=== PATIENT | female | born 1945 | race Caucasian/White ===

== ENCOUNTER 2019-12-30 07:45 | Outpatient (REF) | payer MEDICARE, OTHER, SELFPAY ==
[2019-12-30 11:57] LABS: Free T4 (Free Thyroxine) 1.33 ng/dL (0.71-1.85); Thyroid Stimulating Hormone 2.31 mIU/mL (0.32-4.0)
[2020-01-01 18:32] LABS: Thyroid Peroxidase Antibodies 129 IU/mL (<9)
== END 2019-12-30 07:46 | disposition home or self-care (01) ==
LOC: HO.10HDL 07:45
PROVIDERS: Visit Provider Internal Medicine Endocrinology, Diabetes & Metabolism
DX: E03.9 Hypothyroidism, unspecified (principal)
CPT/HCPCS: 36415; 84439; 84443; 86376

== ENCOUNTER 2020-02-03 08:04 | Outpatient (REF) | payer MEDICARE, OTHER, SELFPAY ==
[2020-02-03 11:13] LABS: Free T4 (Free Thyroxine) 1.26 ng/dL (0.71-1.85); Thyroid Stimulating Hormone 2.93 uIU/mL (0.32-4.0)
[2020-02-04 21:42] LABS: Thyroid Peroxidase Antibodies 121 IU/mL (<9)
== END 2020-02-03 08:05 | disposition home or self-care (01) ==
LOC: HO.10HDL 08:04
PROVIDERS: Visit Provider Internal Medicine Endocrinology, Diabetes & Metabolism
DX: Z13.89 Encounter for screening for other disorder (principal)
CPT/HCPCS: 36415; 84439; 84443; 86376

== ENCOUNTER 2020-02-20 12:21 | Outpatient (REF) | payer MEDICARE, OTHER, SELFPAY | END 2020-02-20 12:22 | disposition home or self-care (01) | LOC: HO.WFDLDS 12:21 | PROVIDERS: Visit Provider Internal Medicine | DX: Z20.828 Contact with and (suspected) exposure to other viral communicable diseases (principal) | CPT/HCPCS: C9803; U0003 ==

== ENCOUNTER 2020-03-02 07:44 | Outpatient (REF) | payer MEDICARE, OTHER, SELFPAY ==
[2020-03-02 10:52] LABS: Free T4 (Free Thyroxine) 1.21 ng/dL (0.71-1.85); Thyroid Stimulating Hormone 4.33 uIU/mL (0.32-4.0)
== END 2020-03-02 07:45 | disposition home or self-care (01) ==
LOC: HO.10HDLR 07:44
PROVIDERS: PCP Internal Medicine; Visit Provider Internal Medicine Endocrinology, Diabetes & Metabolism
DX: E03.9 Hypothyroidism, unspecified (principal)
CPT/HCPCS: 84439; 84443

== ENCOUNTER 2020-04-15 09:18 | Outpatient (REF) | payer MEDICARE, OTHER, SELFPAY ==
--- NOTE | 2020-04-15 09:23 | MM_ITS ---
EXAMINATION: MM SCREENING DIGITAL BREAST TOMOSYNTHESIS, BILATERAL CLINICAL INFORMATION: Screening. Asymptomatic. The lifetime risk of breast cancer based on the Tyrer-Cuzick Model is 3.3%. COMPARISON: Mammography: September 14, 2018 and studies dating back to August 16, 2012 TECHNIQUE: Digital breast tomosynthesis is performed in both the craniocaudal and mediolateral oblique views along with computer-aided detection (CAD). Synthesized 2D images are generated from the tomosynthesis. FINDINGS: There are scattered areas of fibroglandular density (ACR BI-RADS breast composition Category b). There are no significant masses, abnormal calcifications, or other abnormalities. MM/MM tomosynthesis screening BI IMPRESSION: There are no significant changes from prior study. ASSESSMENT: BI-RADS 1: Negative RECOMMENDATION: Routine annual mammography screening. This patient's information was entered into a reminder system with a target due date for their next mammogram.
== END 2020-04-15 09:19 | disposition home or self-care (01) ==
LOC: HO.MAMMO 09:18
PROVIDERS: Visit Provider Internal Medicine
DX: Z12.31 Encounter for screening mammogram for malignant neoplasm of breast (principal)
CPT/HCPCS: 77063; 77067

== ENCOUNTER 2020-11-14 08:00 | Outpatient (REF) | payer MEDICARE, OTHER, SELFPAY ==
[2020-11-14 09:42] LABS: Alanine Aminotransferase 88 U/L (0-31); Albumin Level 4.1 g/dL (3.5-5.0); Alkaline Phosphatase 86 U/L (39-117); Anion Gap 12 (12-20); Aspartate Amino Transferase 55 U/L (5-31); Bilirubin Total 0.7 mg/dL (0.0-1.0); Blood Urea Nitrogen 18 mg/dL (9-16); Calcium 9.4 mg/dL (8.4-10.2); Carbon Dioxide 28 mmol/L (22-29); Chloride 105 mmol/L (96-108); Cholesterol 177 mg/dL; Estimated Glomerular Filt Rate > 60; Glucose Random 107 mg/dL (60-115); HDL Cholesterol 61 mg/dL; LDL Cholesterol Calculated 106 mg/dl; Potassium 4.7 mmol/L (3.3-5.1); Sodium 140 mmol/L (135-145); Total Protein 6.7 g/dL (6.5-8.0); Triglycerides 53 mg/dL
[2020-11-17 13:35] LABS: Estimated Average Glucose 120 mg/dL; Hemoglobin A1c % 5.8 %
== END 2020-11-14 08:01 | disposition home or self-care (01) ==
LOC: HO.LAB 08:00
PROVIDERS: PCP Internal Medicine; Visit Provider Physician Assistant
DX: R73.01 Impaired fasting glucose (principal); E78.00 Pure hypercholesterolemia, unspecified
CPT/HCPCS: 36415; 80053; 80061; 83036

== ENCOUNTER 2021-03-08 07:11 | Outpatient (REF) | payer MEDICARE, OTHER, SELFPAY ==
[2021-03-08 08:25] LABS: Free T4 (Free Thyroxine) 1.05 ng/dL (0.71-1.85); Thyroid Stimulating Hormone 9.45 uIU/mL (0.32-4.0)
== END 2021-03-08 07:12 | disposition home or self-care (01) ==
LOC: HO.LAB 07:11
PROVIDERS: PCP Internal Medicine; Visit Provider Internal Medicine Endocrinology, Diabetes & Metabolism
DX: E03.9 Hypothyroidism, unspecified (principal)
CPT/HCPCS: 36415; 84439; 84443

== ENCOUNTER 2021-04-28 13:48 | Outpatient (REF) | payer MEDICARE, OTHER, SELFPAY ==
--- NOTE | ~2021-04-28 | MM_ITS ---
EXAMINATION: MM SCREENING DIGITAL BREAST TOMOSYNTHESIS, BILATERAL CLINICAL INFORMATION: Screening. Asymptomatic. The lifetime risk of breast cancer based on the Tyrer-Cuzick Model is 4%. COMPARISON: Mammography: 04/15/2020, 09/14/2018, 05/09/2017, 03/16/2016 TECHNIQUE: Digital breast tomosynthesis is performed in both the craniocaudal and mediolateral oblique views along with computer-aided detection (CAD). Synthesized 2D images are generated from the tomosynthesis. FINDINGS: There are scattered areas of fibroglandular density (ACR BI-RADS breast composition Category b). Parenchymal pattern is similar to prior studies. Left breast has stable parenchymal asymmetry anterior upper outer periareolar region. Right breast has a stable nodule mid upper outer quadrant measuring approximately 5 x 7 mm. There is no interval mass or architectural abnormality or abnormal calcifications. The axilla and skin contours are unremarkable. No significant changes. MM/MM tomosynthesis screening BI IMPRESSION: No mammographic evidence of malignancy. ASSESSMENT: BI-RADS 2: Benign RECOMMENDATION: Routine annual mammography screening. This patient's information was entered into a reminder system with a target due date for their next mammogram.
== END 2021-04-28 13:49 | disposition home or self-care (01) ==
LOC: HO.MAMMO 13:48
PROVIDERS: PCP Internal Medicine; Visit Provider Internal Medicine
DX: Z12.31 Encounter for screening mammogram for malignant neoplasm of breast (principal)
CPT/HCPCS: 77063; 77067

== ENCOUNTER 2021-05-05 10:45 | Outpatient (REF) | payer MEDICARE, OTHER, SELFPAY ==
[2021-05-05 13:26] LABS: MANUAL DIFF FLAG NO
[2021-05-05 13:32] LABS: Basophils Absolute Auto 0.1 X10*3/uL (0.0-0.2); Basophils Percent Auto 1.2 % (0-2); Eosinophils Absolute Auto 0.1 X10*3/uL (0.0-0.4); Eosinophils Percent Auto 2.4 % (0-4); Hematocrit 42.8 % (37.0-47.0); Hemoglobin 13.9 g/dl (12.0-16.0); Imm Gran Abs Auto 0.02 X10*3/uL (0.00-0.03); Imm Gran Pct Auto 0.4 % (0.0-0.4); Lymphocytes Absolute Auto 1.1 X10*3/uL (1.2-4.9); Lymphocytes Percent Auto 22.6 % (20-40); Mean Corpuscular HGB Conc 32.5 g/dl (31.0-35.0); Mean Corpuscular Hemoglobin 31.7 pg (27.0-33.0); Mean Corpuscular Volume 97.7 fL (80.0-98.0); Mean Platelet Volume 9.6 fL (9.4-12.3); Monocytes Absolute Auto 0.3 X10*3/uL (0.1-1.2); Monocytes Percent Auto 5.3 % (2-11); Neutrophils Absolute Auto 3.4 x10*3/uL (2.0-8.3); Neutrophils Percent Auto 68.1 % (45-73); Platelet Count 284 X10*3/uL (160-400); Red Blood Count 4.38 X10*6/uL (4.20-5.50); Red Cell Distribution Width 12.5 % (11.0-16.0); White Blood Count 4.9 X10*3/uL (4.8-10.8)
[2021-05-05 13:43] LABS: Alanine Aminotransferase 27 U/L (0-31); Albumin Level 4.2 g/dL (3.5-5.0); Alkaline Phosphatase 95 U/L (39-117); Anion Gap 13 (12-20); Aspartate Amino Transferase 27 U/L (5-31); Bilirubin Total 0.7 mg/dL (0.0-1.0); Blood Urea Nitrogen 15 mg/dL (9-16); Calcium 9.5 mg/dL (8.4-10.2); Carbon Dioxide 29 mmol/L (22-29); Chloride 102 mmol/L (96-108); Estimated Glomerular Filt Rate > 60; Glucose Random 114 mg/dL (60-115); Potassium 4.5 mmol/L (3.3-5.1); Sodium 139 mmol/L (135-145); Total Protein 6.8 g/dL (6.5-8.0)
[2021-05-05 13:44] LABS: Estimated Average Glucose 123 mg/dL; Hemoglobin A1C 148.3527 umol/L; Hemoglobin A1c % 5.9 %
[2021-05-05 14:04] LABS: Syphilis Screen Nonreactive (Nonreactive)
[2021-05-05 14:06] LABS: Free T4 (Free Thyroxine) 1.36 ng/dL (0.71-1.85); Thyroid Stimulating Hormone 1.63 uIU/mL (0.32-4.0)
[2021-05-05 14:09] LABS: Appearance Urine HAZY; Color Urine STRAW; Glucose Urine UA NEG (NEG); Leukocyte Esterase Urine NEG (NEG); Nitrite Urine NEG (NEG); Specific Gravity - Urine <= 1.005 (1.005-1.025); Urine Blood NEG (NEG); Urine Ketones NEG (NEG); Urine Protein NEG (NEG-TRACE)
[2021-05-05 14:12] LABS: Erythrocyte Sedimentation Rate 7 MM/HR (0-20)
[2021-05-05 14:16] LABS: Folate 6.1 ng/mL (> or = 4.0); Vitamin B12 305 pg/mL (200-900)
== END 2021-05-05 10:46 | disposition home or self-care (01) ==
LOC: HO.MANLDS 10:45
PROVIDERS: PCP Physician Assistant; Visit Provider Physician Assistant
DX: R41.3 Other amnesia (principal)
CPT/HCPCS: 36415; 80053; 81003; 82607; 82746; 83036; 84439; 84443; 85025; 85652; 86140; 86780

== ENCOUNTER 2021-05-12 13:19 | Outpatient (REF) | payer MEDICARE, OTHER, SELFPAY ==
--- NOTE | ~2021-05-12 | CT_ITS ---
EXAMINATION: CT HEAD WITHOUT CONTRAST CLINICAL INFORMATION: Amnesia, atrophy, CVA. COMPARISON: None TECHNIQUE: Contiguous axial imaging was performed from the skull base to vertex without intravenous administration of contrast. This CT examination was performed using dose optimization techniques as appropriate, variously including the following: Automated exposure control. Adjustment of mA and/or kV according to patient size (this includes techniques or standardized protocols for targeted exams where dose is matched to indication/reason for exam; i.e. extremities or head). Use of iterative reconstruction technique. DLP: 784 mGy-cm FINDINGS: There is no evidence of acute intracranial hemorrhage or territorial infarction. No abnormal mass effect or midline shift is seen. Braden to white matter differentiation is well preserved. No extra-axial fluid collections are identified. The lateral ventricles are symmetrical in size and configuration without enlargement. There is no abnormal attenuation within the brain parenchyma. There is benign hyperostosis frontalis interna. The osseous structures and soft tissues are normal. The mastoid air cells and visualized portions of the paranasal sinuses are well aerated. CT/CT head/brain wo con IMPRESSION: No acute intracranial process seen.
== END 2021-05-12 13:20 | disposition home or self-care (01) ==
LOC: HO.CT 13:19
PROVIDERS: Visit Provider Physician Assistant
DX: R41.3 Other amnesia (principal)
CPT/HCPCS: 70450

== ENCOUNTER 2022-05-04 13:31 | Outpatient (REF) | payer MEDICARE, OTHER, SELFPAY ==
--- NOTE | ~2022-05-04 | MM_ITS ---
EXAMINATION: MM SCREENING DIGITAL BREAST TOMOSYNTHESIS, BILATERAL CLINICAL INFORMATION: Screening. Asymptomatic. The lifetime risk of breast cancer based on the Tyrer-Cuzick Model is 4%. COMPARISON: Mammography: 04/28/2021, 04/15/2020, 09/14/2018 TECHNIQUE: Digital breast tomosynthesis is performed in both the craniocaudal and mediolateral oblique views along with computer-aided detection (CAD). Synthesized 2D images are generated from the tomosynthesis. FINDINGS: There are scattered areas of fibroglandular density (ACR BI-RADS breast composition Category b). There are no significant masses, abnormal calcifications, or other abnormalities. Parenchymal pattern is similar to prior studies. There is no developing density or architectural abnormality. Again, there is a stable nodule mid upper outer right breast similar to prior studies. The axilla and skin contours are unremarkable. No significant changes. MM/MM tomosynthesis screening BI IMPRESSION: No significant changes from prior studies. ASSESSMENT: BI-RADS 2: Benign RECOMMENDATION: Routine annual mammography screening. This patient's information was entered into a reminder system with a target due date for their next mammogram.
== END 2022-05-04 13:32 | disposition home or self-care (01) ==
LOC: HO.MAMMO 13:31
PROVIDERS: PCP Internal Medicine; Visit Provider Internal Medicine
DX: Z12.31 Encounter for screening mammogram for malignant neoplasm of breast (principal)
CPT/HCPCS: 77063; 77067

== ENCOUNTER 2022-09-05 12:26 | Outpatient (REF) | payer MEDICARE, OTHER, SELFPAY ==
[2022-09-05 14:48] LABS: Free T4 (Free Thyroxine) 0.91 ng/dL (0.71-1.85); Thyroid Stimulating Hormone 7.95 uIU/mL (0.32-4.0)
== END 2022-09-05 12:27 | disposition home or self-care (01) ==
LOC: HO.10HDL 12:26
PROVIDERS: Visit Provider Physician Assistant
DX: E03.8 Other specified hypothyroidism (principal)
CPT/HCPCS: 36415; 84439; 84443

== ENCOUNTER 2022-11-04 11:22 | Outpatient (REF) | payer MEDICARE, OTHER, SELFPAY ==
[2022-11-04 16:59] LABS: Free T4 (Free Thyroxine) 0.96 ng/dL (0.71-1.85); Thyroid Stimulating Hormone 6.71 uIU/mL (0.32-4.0)
== END 2022-11-04 11:23 | disposition home or self-care (01) ==
LOC: HO.10HDL 11:22
PROVIDERS: Visit Provider Physician Assistant
DX: E03.8 Other specified hypothyroidism (principal)
CPT/HCPCS: 36415; 84439; 84443

== ENCOUNTER 2022-11-18 11:03 | Outpatient (REF) | payer MEDICARE, OTHER, SELFPAY ==
[2022-11-18 14:11] LABS: Free T4 (Free Thyroxine) 1.07 ng/dL (0.71-1.85); Thyroid Stimulating Hormone 12.24 uIU/mL (0.32-4.0)
== END 2022-11-18 11:04 | disposition home or self-care (01) ==
LOC: HO.10HDL 11:03
PROVIDERS: Visit Provider Physician Assistant
DX: E03.8 Other specified hypothyroidism (principal)
CPT/HCPCS: 36415; 84439; 84443

== ENCOUNTER 2022-12-14 11:22 | Outpatient (REF) | payer MEDICARE, OTHER, SELFPAY ==
[2022-12-14 14:36] LABS: Free T4 (Free Thyroxine) 1.13 ng/dL (0.71-1.85); Thyroid Stimulating Hormone 3.11 uIU/mL (0.32-4.0)
== END 2022-12-14 11:23 | disposition home or self-care (01) ==
LOC: HO.10HDL 11:22
PROVIDERS: Visit Provider Physician Assistant
DX: E03.8 Other specified hypothyroidism (principal)
CPT/HCPCS: 36415; 84439; 84443

== ENCOUNTER 2023-09-26 09:47 | Outpatient (REF) | payer MEDICARE, OTHER, SELFPAY ==
[2023-09-26 13:01] LABS: MANUAL DIFF FLAG NO
[2023-09-26 13:09] LABS: Basophils Absolute Auto 0.1 X10*3/uL (0.0-0.2); Basophils Percent Auto 0.8 % (0-2); Eosinophils Absolute Auto 0.1 X10*3/uL (0.0-0.4); Eosinophils Percent Auto 2.2 % (0-4); Hematocrit 45.3 % (37.0-47.0); Hemoglobin 14.8 g/dl (12.0-16.0); Imm Gran Abs Auto 0.02 X10*3/uL (0.00-0.03); Imm Gran Pct Auto 0.3 % (0.0-0.4); Lymphocytes Absolute Auto 1.7 X10*3/uL (1.2-4.9); Lymphocytes Percent Auto 26.2 % (20-40); Mean Corpuscular HGB Conc 32.7 g/dl (31.0-35.0); Mean Corpuscular Hemoglobin 31.6 pg (27.0-33.0); Mean Corpuscular Volume 96.8 fL (80.0-98.0); Mean Platelet Volume 9.7 fL (9.4-12.3); Monocytes Absolute Auto 0.5 X10*3/uL (0.1-1.2); Neutrophils Percent Auto 62.5 % (45-73); Platelet Count 252 X10*3/uL (160-400); Red Blood Count 4.68 X10*6/uL (4.20-5.50); Red Cell Distribution Width 13.1 % (11.0-16.0); White Blood Count 6.4 X10*3/uL (4.8-10.8)
[2023-09-26 13:43] LABS: Alanine Aminotransferase 24 U/L (0-31); Alkaline Phosphatase 85 U/L (39-117); Anion Gap 15 (12-20); Aspartate Amino Transferase 22 U/L (5-31); Bilirubin Total 0.8 mg/dL (0.0-1.0); Blood Urea Nitrogen 23 mg/dL (9-16); Carbon Dioxide 27 mmol/L (22-29); Chloride 104 mmol/L (96-108); Estimated Glomerular Filt Rate > 60; Glucose Random 97 mg/dL (60-115); Potassium 4.5 mmol/L (3.3-5.1); Sodium 141 mmol/L (135-145)
[2023-09-26 13:44] LABS: Free T4 (Free Thyroxine) 1.92 ng/dL (0.71-1.85); Thyroid Stimulating Hormone 0.06 uIU/mL (0.32-4.0); Vitamin D 25-OH Total 30.2 ng/mL (>30)
[2023-09-26 13:53] LABS: Folate 4.8 ng/mL (> or = 4.0); Vitamin B12 324 pg/mL (200-900)
[2023-09-27 15:54] LABS: Triiodothyronine T3 Free 3.7 pg/mL (2.3-4.2)
[2023-10-02 18:05] LABS: Thyroid Stimulating Immunoglob <89 % baseline (<140)
== END 2023-09-26 09:48 | disposition home or self-care (01) ==
LOC: HO.MANLDS 09:47
PROVIDERS: Visit Provider Physician Assistant
DX: E03.8 Other specified hypothyroidism (principal); F02.A18 Dementia in other diseases classified elsewhere, mild, with other behavioral disturbance
CPT/HCPCS: 36415; 80053; 82306; 82607; 82746; 84439; 84443; 84445; 84481; 85025

== ENCOUNTER 2023-11-04 12:35 | Emergency (ER) | payer MEDICARE, OTHER, SELFPAY ==
--- NOTE | ~2023-11-04 | US_ITS ---
EXAMINATION: US ABDOMEN LIMITED CLINICAL INFORMATION: Pancytopenia. COMPARISON: CT from 01/26/2018 TECHNIQUE: Real-time imaging of the left upper quadrant abdominal viscera. FINDINGS: SPLEEN: Normal. The spleen is normal in size measuring a long length of 8.7 cm. Parenchymal echogenicity is normal. LEFT KIDNEY: Normal. No hydronephrosis. No renal calculi or focal parenchymal lesions. The kidney measures 9.7 cm in maximum dimension. FREE FLUID: None. US/US abdomen limited IMPRESSION: Normal ultrasound of the spleen and left kidney. Electronically signed by: Aman Hill MD 11/05/2023 09:46 PM EDT
[2023-11-04 12:47] VITALS: BP 123/53; PULSE 81; RESP 16; O2SAT 96; BMI 21.0
[2023-11-04 12:50] VITALS: BP 123/53; PULSE 81; RESP 14; O2SAT 96
--- NOTE | 2023-11-04 12:55 | PC.NURSE ---
Pt comes to ED today from home, lives with family. Report from EMS, that Pt is confused at baseline--oriented to person only, and has been presenting with increased anger. Family requesting placement for higher level of care. Pt denies pain and frequently asks to leave.
--- NOTE | 2023-11-04 13:00 | ED.GENADULT ---
HPI - General Adult General Chief complaint: General Medical Stated complaint: ANGRY W/FAMILY,ALZHEIMERS,FAM WANTS HIGHER CARE Time Seen by Provider: 11/04/23 12:46 Source: patient and EMS Mode of arrival: EMS Limitations: other (poor historian - dementia) History of Present Illness ED Provider: NADEEM HPI narrative: 78 yo female with PMH of dementia and HTN here with c/o dementia dx about 2 years ago and then abrupt change about a week ago aggressive agitated not eating or drinking. Family here sons one of whom she lives with and they state they cannot care for her and she needs to be evaluated. They state we are not taking her home. Patient is on BP medications and seroquel. current med list atorvastatin 40mg daily levothyroxine 200mcg daily lisinopril 10mg daily donepezil 10mg daily memantine 14mg daily currently on bactrim for the past week for presumed UTI though never seen and no urine done per son complaint: agitation Onset (ago): week(s) (1) Radiation: non-radiation Severity: moderate Relieving factors: none Exacerbating factors: none Associated symptoms: other (aggression, agitation, poor PO intake) Treatments prior to arrival: none Related Data Allergies Allergy/AdvReac Type Severity Reaction Status Date / Time No Known Allergies Allergy Unverified 11/04/23 12:48 [No Known Allergies*] Review of Systems Review of Systems: ROS unable to be obtained due to dementia Physical Exam ED Vital Signs: Vital Signs - 24 hr 11/04/23 12:47 11/04/23 12:50 11/04/23 14:00 Temperature 98.3 F Pulse Rate 81 81 67 Respiratory Rate 16 14 14 Blood Pressure 123/53 L 123/53 L 109/61 Pulse Oximetry 96 96 100 Oxygen Delivery Method Room Air Room Air Room Air BMI result Body Mass Index 21.0 Appearance: Alert. Oriented to self and place No acute distress. Eyes: Pupils equal, round and reactive to light. ENT: Pharynx normal. Neck: Normal inspection. Neck supple. CVS: Normal heart rate and rhythm. Pulses normal. Respiratory: No respiratory distress. Breath sounds normal. Abdomen: Soft and non-tender. Skin: Skin warm and dry. Normal skin color. Normal skin turgor. Extremities: No lower extremity edema. No calf ttp Neuro: Oriented X 2. No motor deficit. No sensory deficit. steady gait, CN2-12 intact Course Course Course Narrative: Kylah Call HCP [phone] Medications Administered Discontinued Medications Generic Name Dose Route Start Last Admin Trade Name Enrique PRN Reason Stop Dose Admin Quetiapine Fumarate 25 mg 11/04/23 13:00 11/04/23 13:04 Quetiapine Fumarate 25 Mg Tablet PO 11/04/23 13:01 25 mg ONCE ONE Administration Medical Decision Making Medical Decision Making [facility] Narrative: 78 yo female with PMH of dementia and HTN here with c/o worsening aggression and agitation at this time will obtain labs, UA and refer to CARE team. I did order seroquel on arrival given her anxiety and agitation Differential Diagnosis Differential Diagnoses: The differential diagnosis associated with the presentation includes dementia , UTI Admission/Observation Consideration of admission/observation: Escalation of care including admission/observation considered Consult Healthcare Provider Management of the patient was discussed with: Behavioral Health Provider Lab Data [facility] Lab Attestation statement: I reviewed the patient's lab results. 11/04/23 13:17 11/04/23 13:17 Labs: Lab Results 11/04/23 Range/Units 13:17 WBC 4.4 L (4.8-10.8) X10*3/uL RBC 3.61 L D (4.20-5.50) X10*6/uL Hgb 11.5 L D (12.0-16.0) g/dl Hct 33.8 L D (37.0-47.0) % MCV 93.6 (80.0-98.0) fL MCH 31.9 (27.0-33.0) pg MCHC 34.0 (31.0-35.0) g/dl RDW 12.5 (11.0-16.0) % Plt Count 184 D (160-400) X10*3/uL MPV 9.1 L (9.4-12.3) fL Immature Gran % (Auto) 0.2 (0.0-0.4) % Neut % (Auto) 72.7 (45-73) % Lymph % (Auto) 9.9 L (20-40) % [place] % (Auto) 11.5 H (2-11) % Eos % (Auto) 5.2 H (0-4) % Baso % (Auto) 0.5 (0-2) % Lymph # (Auto) 0.4 L (1.2-4.9) X10*3/uL [place] # (Auto) 0.5 (0.1-1.2) X10*3/uL Eos # (Auto) 0.2 (0.0-0.4) X10*3/uL Baso # (Auto) 0.0 (0.0-0.2) X10*3/uL Abs Immat Gran (auto) 0.01 (0.00-0.03) X10*3/uL Absolute Neuts (auto) 3.2 (2.0-8.3) x10*3/uL Absolute Nucleated RBC 0.000 (0.0-0.012) X10*3/uL Nucleated RBC % (auto) 0.0 (0.0-0.2) /100WBC Sodium 138 (135-145) mmol/L Potassium 3.8 (3.3-5.1) mmol/L Chloride 104 (96-108) mmol/L Carbon Dioxide 25 (22-29) mmol/L Anion Gap 13 (12-20) BUN 39 H (9-16) mg/dL Creatinine 1.05 (0.5-1.4) mg/dL Estim Creat Clear Calc 42.5 Estimated GFR 51 Random Glucose 113 (60-115) mg/dL Calcium 9.6 (8.4-10.2) mg/dL Magnesium 2.2 (1.6-2.6) mg/dL Total Bilirubin 0.5 (0.0-1.0) mg/dL Direct Bilirubin 0.2 (0.0-0.5) mg/dL AST 20 (5-31) U/L ALT 14 (0-31) U/L Alkaline Phosphatase 74 (39-117) U/L Total Protein 6.2 L (6.5-8.0) g/dL Albumin 3.7 (3.5-5.0) g/dL TSH < 0.01 L (0.32-4.0) uIU/mL Independent Historian Clinical information obtained from an independent historian. History obtained from or confirmed by: Other (son) External Record Review External record reviewed: Outpatient record Discharge Plan Discharge Clinical Impression: Dementia Qualifiers: Dementia type: unspecified type Dementia severity: unspecified severity Dementia behavioral or psychological symptom: without behavioral, psychotic, or mood disturbance or anxiety Qualified Code(s): F03.90 - Unspecified dementia, unspecified severity, without behavioral disturbance, psychotic disturbance, mood disturbance, and anxiety Patient Disposition: Still a Patient Print Language: Upper Sorbian
[2023-11-04] MEDS: QUEtiapine Fumarate 25 MG TABLET PO (13:04)
[2023-11-04 13:22] LABS: MANUAL DIFF FLAG NO
[2023-11-04 13:26] LABS: Basophils Percent Auto 0.5 % (0-2); Eosinophils Absolute Auto 0.2 X10*3/uL (0.0-0.4); Eosinophils Percent Auto 5.2 % (0-4); Hematocrit 33.8 % (37.0-47.0); Hemoglobin 11.5 g/dl (12.0-16.0); Imm Gran Abs Auto 0.01 X10*3/uL (0.00-0.03); Imm Gran Pct Auto 0.2 % (0.0-0.4); Lymphocytes Absolute Auto 0.4 X10*3/uL (1.2-4.9); Lymphocytes Percent Auto 9.9 % (20-40); Mean Corpuscular Hemoglobin 31.9 pg (27.0-33.0); Mean Corpuscular Volume 93.6 fL (80.0-98.0); Mean Platelet Volume 9.1 fL (9.4-12.3); Monocytes Absolute Auto 0.5 X10*3/uL (0.1-1.2); Monocytes Percent Auto 11.5 % (2-11); Neutrophils Absolute Auto 3.2 x10*3/uL (2.0-8.3); Neutrophils Percent Auto 72.7 % (45-73); Platelet Count 184 X10*3/uL (160-400); Red Blood Count 3.61 X10*6/uL (4.20-5.50); Red Cell Distribution Width 12.5 % (11.0-16.0); White Blood Count 4.4 X10*3/uL (4.8-10.8)
[2023-11-04 13:43] LABS: Alanine Aminotransferase 14 U/L (0-31); Albumin Level 3.7 g/dL (3.5-5.0); Alkaline Phosphatase 74 U/L (39-117); Anion Gap 13 (12-20); Aspartate Amino Transferase 20 U/L (5-31); Bilirubin Direct 0.2 mg/dL (0.0-0.5); Bilirubin Total 0.5 mg/dL (0.0-1.0); Blood Urea Nitrogen 39 mg/dL (9-16); Calcium 9.6 mg/dL (8.4-10.2); Carbon Dioxide 25 mmol/L (22-29); Chloride 104 mmol/L (96-108); Creatinine Clr Calc Pharmacy 42.5; Estimated Glomerular Filt Rate 51; Glucose Random 113 mg/dL (60-115); Magnesium 2.2 mg/dL (1.6-2.6); Potassium 3.8 mmol/L (3.3-5.1); Sodium 138 mmol/L (135-145); Total Protein 6.2 g/dL (6.5-8.0)
[2023-11-04 13:59] LABS: TSH reflex Free T4 < 0.01 uIU/mL (0.32-4.0)
[2023-11-04 14:00] VITALS: BP 109/61; PULSE 67; RESP 14; TEMP 36.8; O2SAT 100
[2023-11-04 15:01] LABS: Free T4 (Free Thyroxine) 1.92 ng/dL (0.71-1.85)
[2023-11-04 15:09] LABS: Influenza A PCR NEGATIVE (Negative); Influenza B PCR NEGATIVE (Negative); Resp Syncy Virus RNA Qual PCR NEGATIVE (Negative); SARS COV2 PCR INHOUSE NEGATIVE (Negative)
--- NOTE | 2023-11-04 16:39 | PC.NURSE ---
Pharmacy called for med rec
--- NOTE | 2023-11-04 17:02 | PHA.MEDREC ---
Pharmacy Consult ? Medication Reconciliation Pharmacy has completed the medication reconciliation. Spoke to Kylah (HCP) on the phone to go over and confirm meds.
[2023-11-04 17:18] LABS: Appearance Urine Turbid; Color Urine Yellow; Glucose Urine UA Negative (Negative); Leukocyte Esterase Urine Trace (Negative); Nitrite Urine Negative (Negative); Specific Gravity - Urine 1.025 (1.005-1.025); UMIC TRIGGER UACC YES; Urine Blood Negative (Negative); Urine Ketones 15 mg/dL (Negative); Urine Protein Trace mg/dL (Neg-Trace)
[2023-11-04 17:27] LABS: Bacteria Urine None Seen (None Seen); Hyaline Casts Urine 0-2 /LPF (0-2); Other Crystals Urine Present; RBC Urine 0-2 /HPF (0-2); Squamous Epithelial Cell Urine 0-2 /HPF (0-2); WBC Urine 0-5 /HPF (0-5)
[2023-11-04 17:38] VITALS: BP 120/52; PULSE 68; RESP 18; TEMP 36.7; O2SAT 99
[2023-11-04 18:00] VITALS: BP 138/60; PULSE 96; RESP 14; TEMP 36.9; O2SAT 96
--- NOTE | 2023-11-04 21:19 | PC.NURSE ---
Assumed care of ptTravis Castanon at bedside 1:1 for safety.
[2023-11-05 06:41] LABS: Basophils Percent Auto 0.3 % (0-2); Eosinophils Absolute Auto 0.3 X10*3/uL (0.0-0.4); Hematocrit 31.3 % (37.0-47.0); Hemoglobin 10.6 g/dl (12.0-16.0); Imm Gran Abs Auto 0.01 X10*3/uL (0.00-0.03); Imm Gran Pct Auto 0.3 % (0.0-0.4); Lymphocytes Absolute Auto 0.3 X10*3/uL (1.2-4.9); Lymphocytes Percent Auto 11.3 % (20-40); MANUAL DIFF FLAG NO; Mean Corpuscular HGB Conc 33.9 g/dl (31.0-35.0); Mean Corpuscular Hemoglobin 31.6 pg (27.0-33.0); Mean Corpuscular Volume 93.4 fL (80.0-98.0); Mean Platelet Volume 8.8 fL (9.4-12.3); Monocytes Absolute Auto 0.5 X10*3/uL (0.1-1.2); Neutrophils Absolute Auto 1.8 x10*3/uL (2.0-8.3); Neutrophils Percent Auto 59.1 % (45-73); Platelet Count 151 X10*3/uL (160-400); Red Blood Count 3.35 X10*6/uL (4.20-5.50); Red Cell Distribution Width 12.5 % (11.0-16.0)
[2023-11-05 07:41] LABS: OBS Int Ctl Valid YES; OBS1 NEGATIVE (NEGATIVE)
[2023-11-05 07:53] VITALS: BP 121/43; PULSE 58; RESP 18; TEMP 36.9; O2SAT 99
[2023-11-05 08:11] LABS: Anion Gap 11 (12-20); Blood Urea Nitrogen 22 mg/dL (9-16); Carbon Dioxide 23 mmol/L (22-29); Chloride 106 mmol/L (96-108); Creatinine Clr Calc Pharmacy 65.6; Estimated Glomerular Filt Rate > 60; Glucose Random 87 mg/dL (60-115); Potassium 4.1 mmol/L (3.3-5.1); Sodium 136 mmol/L (135-145)
[2023-11-05 08:23] LABS: Calcium 8.4 mg/dL (8.4-10.2)
--- NOTE | 2023-11-05 08:33 | PC.NURSE ---
pt has been calm, in hallway bed with sitter. e ating breakfast. able to follow commands for guiac stool and radiology
[2023-11-05 08:52] VITALS: BP 121/43
[2023-11-05] MEDS: Atorvastatin Calcium 40 MG TABLET PO (08:52)
[2023-11-05] MEDS: lisinopriL 10 MG TABLET PO (08:52)
[2023-11-05] MEDS: Donepezil HCl 10 MG TABLET PO (08:52)
[2023-11-05] MEDS: QUEtiapine Fumarate 25 MG TABLET PO ×2 (08:53→20:06)
--- NOTE | 2023-11-05 10:18 | PC.NURSE ---
update to family on phone. states patient has not been sleeping or eating. behaviors escaling. they are clear they cannot care for her at home. Spoke with Kylah and Jonathan Call. was recently on Abx with suspecting but not confirmed UTI. No urine sent. Will bring Memantine in to ED.
[2023-11-05 12:54] LABS: Hemoglobin 10.1 g/dl (12.0-16.0); Mean Corpuscular HGB Conc 33.7 g/dl (31.0-35.0); Mean Corpuscular Hemoglobin 31.5 pg (27.0-33.0); Mean Corpuscular Volume 93.5 fL (80.0-98.0); Mean Platelet Volume 9.4 fL (9.4-12.3); Platelet Count 143 X10*3/uL (160-400); Red Blood Count 3.21 X10*6/uL (4.20-5.50); Red Cell Distribution Width 12.6 % (11.0-16.0); White Blood Count 2.7 X10*3/uL (4.8-10.8)
[2023-11-05 12:59] LABS: Iron 28 mcg/dL (30-160); Percent Iron Saturation 16 % (15-50); Total Iron Binding Capacity 170 mcg/dL (228-428); Unsaturated Iron Binding 142 ug/dL
[2023-11-05 13:33] LABS: Folate 3.3 ng/mL (> or = 4.0)
[2023-11-05 13:48] LABS: Vitamin B12 332 pg/mL (200-900)
--- NOTE | 2023-11-05 14:14 | PC.NURSE ---
assumed care of pt at 1400, pt resting quietly in bed, CARE team speaking w pt, 1:1 at bedside.
[2023-11-05] MEDS: Ferrous Sulfate 324 MG TABLET.DR PO (14:55)
[2023-11-05] MEDS: Folic Acid 1 MG TABLET PO (14:55)
--- NOTE | 2023-11-05 15:59 | PC.NURSE ---
Pt observed resting comfortably on stretcher with eye closed. NAD
--- NOTE | 2023-11-05 21:14 | P.CNHO_ITS ---
Subjective - Subjective Chief complaint: pancytopenia Patient: new to practice Consult date: 11/05/23 Primary Care Provider: Roderick Villanueva MD HPI - Consult Narrative Reason for consult: panytopenia Narrative: Ankita Rubio is a 78 year old female with advanced dementia left in the ER by her family yesterday. This stat consultation was done at 8:00 pm. She has a low wb and hematocrit which iare trending down. Her platelets are normal but falling. She cannot give a cogent history but there is no history of portal hypertension aor GI bleeding or hyperspenism Review of Systems - Constitutional Reports fatigue - ENT Reports dizziness - Cardiovascular Reports fast heart rate - Respiratory Reports cough - Gastrointestinal Reports constipation - Genitourinary Reports absent period PMFSH Social History: Social History Tobacco History: Smoked in Last 30 Days: No Substance Use History: Use of substances other than those prescribed or required for medical reasons : No Advance Directives: Advance Directives: Yes Advance Directives Information Provided: No Advance Directives on File: No Homicidal Assessment: Do you have a plan to hurt others: No Plan Home Medications and Allergies Current Medications: Current Medications Atorvastatin Calcium (Atorvastatin Calcium 40 Mg Tablet) 40 mg PO DAILY [facility] Last Admin: 11/05/23 08:52 Dose: 40 mg Donepezil HCl (Donepezil Hcl 10 Mg Tablet) 10 mg PO DAILY [facility] Last Admin: 11/05/23 08:52 Dose: 10 mg Ferrous Sulfate (Ferrous Sulfate 324 Mg Tablet.) 324 mg PO DAILY [facility] Last Admin: 11/05/23 14:55 Dose: 324 mg Folic Acid (Folic Acid 1 Mg Tablet) 1 mg PO DAILY [facility] Last Admin: 11/05/23 14:55 Dose: 1 mg Lisinopril (Lisinopril 10 Mg Tablet) 10 mg PO DAILY [facility]; Protocol Last Admin: 11/05/23 08:52 Dose: 10 mg Patient Own Medication ( Memantine 14 Mg Capsule,Sprinkle,Er 24hr) 14 mg PO DAILY [facility] Last Admin: 11/05/23 12:41 Dose: 14 mg Quetiapine Fumarate (Quetiapine Fumarate 25 Mg Tablet) 25 mg PO BID [facility] Last Admin: 11/05/23 20:06 Dose: 25 mg Home Medications ?Medication ?Instructions ?Recorded ?Confirmed ?Type atorvastatin 40 mg tablet 40 mg PO DAILY 11/04/23 11/04/23 History donepezil 10 mg tablet 10 mg PO DAILY 11/04/23 11/04/23 History levothyroxine 200 mcg tablet 200 mcg PO DAILY@0600 11/04/23 11/04/23 History lisinopril 10 mg tablet 10 mg PO DAILY 11/04/23 11/04/23 History memantine 14 mg capsule 14 mg PO DAILY 11/04/23 11/04/23 History sprinkle,extended release 24hr quetiapine 25 mg tablet 25 mg PO BID 11/04/23 11/04/23 History sulfamethoxazole 800 1 tab PO Q12H 11/04/23 11/04/23 History mg-trimethoprim 160 mg tablet Allergies Allergy/AdvReac Type Severity Reaction Status Date / Time No Known Allergies Allergy Unverified 11/04/23 12:48 [No Known Allergies*] Physical Exam Vital signs: Vital Signs Temp 98.5 F 11/05/23 07:53 Pulse 58 11/05/23 07:53 Resp 18 11/05/23 07:53 BP 121/43 L 11/05/23 08:52 Pulse Ox 99 11/05/23 07:53 O2 Del Method Room Air 11/05/23 07:53 Weight 59.1 kg - Constitutional Present: no acute distress - Routine HEENT Exam Head: Present: atraumatic, normal inspection ENT: Present: normal exam - Routine Neck Exam Present: supple - Routine Respiratory Exam Present: decreased breath sounds - Routine Cardiovascular Exam Cardiovascular: Present: RRR - Routine Abdominal Exam Present: soft Hem/Onc Consult Result - Labs CBC & Chem 7: 11/05/23 12:30 11/05/23 06:35 Labs: Short CBC 11/05/23 11/05/23 Range/Units 06:35 12:30 WBC 3.0 L 2.7 L (4.8-10.8) X10*3/uL Hgb 10.6 L 10.1 L (12.0-16.0) g/dl Hct 31.3 L 30.0 L (37.0-47.0) % Plt Count 151 L 143 L (160-400) X10*3/uL BMP 11/05/23 06:35 Sodium 136 Potassium 4.1 Chloride 106 Carbon Dioxide 23 BUN 22 H Creatinine 0.68 Calcium 8.4 D Assessment and Plan Patient Active problem list reviewed?: Yes (1) Pancytopenia Status: Acute Assessment and plan: There was no evidence for infection or bleeding. We should have an abdominal ultrasound for spleen sixe and evaluate portal hypertension. I will speak with PCP tomorrow for history of ethanol or malignancies. She is stable at present. - Time Spent With Patient Time Spent with Patient (in minutes): 20
[2023-11-05 23:42] VITALS: BP 138/49; PULSE 56; RESP 16; TEMP 36.9; O2SAT 97
[2023-11-06 06:43] VITALS: BP 129/68; PULSE 86; RESP 20; TEMP 37.1; O2SAT 97
--- NOTE | 2023-11-06 08:22 | MHC.EDTECH ---
set up patient with breakfast she refuse to eat
--- NOTE | 2023-11-06 09:22 | PC.NURSE ---
Pt restless, trying to get oob frequently. Refusing breakfast, refusing medications. Ripping off ID bracelet and clothing. Sitter remains at bedside.
--- NOTE | 2023-11-06 09:45 | MHC.EDTECH ---
brought patient to the bathroom
--- NOTE | 2023-11-06 09:47 | PC.NURSE ---
Pt ambulatory to the BR with sitter with a steady gait.
[2023-11-06] MEDS: OLANZapine 10 MG VIAL 2.5 MG IM (09:52)
--- NOTE | 2023-11-06 09:56 | PC.NURSE ---
placed elopement bracelet on pt
--- NOTE | 2023-11-06 10:42 | MHC.CM.ED ---
Addendum entered by Odalis Tavera 11/06/23 12:27: [facility] was completed by Kylah with Rebekah of [facility] [employer] program. Referral made to [facility] Financial Counselor to complete [facility] application. Original Note: Received case management consult from overnight. Patient came to the ER on 11/03 for agitation with history of Alzheimer's. Patient was cleared by Care Team. Attempted to meet with patient in regards to discharge planning. Patient is currently confused. Spoke with patient's sister/HCP, Kylah, via telephone. Kylah's , Dequan joined telephone via speaker phone. Patient has been living with them for the past 2 months. Patient was leaving in her own home with her son. However, her son has been dealing with acute medical issues, which is why patient transitioned to their home. Kylah has tried to apply for [facility] but was told patient was denied due to income. Kylah and Dequan state they are no longer able to care for patient. They also don't feel she has funds to privately pay for placement. At this time, both Kylah and Dequan are aware that private pay SNF may be necessary. T/W offered to refer out private pay bed options. Kylah agreeable. However, patient received IM Zyprexa this morning. Dolores HERNANDEZ will order a psych consult for medication recommendations. Continue to monitor for d/c needs.
[2023-11-06 11:27] VITALS: BP 152/77; PULSE 99; RESP 18; TEMP 36.7; O2SAT 96
--- NOTE | 2023-11-06 13:26 | PC.NURSE ---
Pt continues trying to pick/pull at clothing/equipment and attempting to get up. Sitter remains at bedside.
[2023-11-06 16:22] VITALS: BP 164/60; PULSE 62; RESP 16; TEMP 36.8; O2SAT 96
[2023-11-06 16:51] LABS: Hematocrit 35.9 % (37.0-47.0); Hemoglobin 12.1 g/dl (12.0-16.0); Mean Corpuscular HGB Conc 33.7 g/dl (31.0-35.0); Mean Corpuscular Hemoglobin 31.5 pg (27.0-33.0); Mean Corpuscular Volume 93.5 fL (80.0-98.0); Mean Platelet Volume 8.9 fL (9.4-12.3); Platelet Count 153 X10*3/uL (160-400); Red Blood Count 3.84 X10*6/uL (4.20-5.50); Red Cell Distribution Width 12.7 % (11.0-16.0); White Blood Count 3.8 X10*3/uL (4.8-10.8)
--- NOTE | 2023-11-06 16:51 | MHC.EDTECH ---
Patient blood drawn and sent to lab , vitals taken 1:1 sitter at bedside .
--- NOTE | 2023-11-06 19:50 | MHC.EDTECH ---
2000 rounding done ,patient was ambulated to bathroom , void and had a medium moist bowel movement ,care given and gown change ,Patient was fed dinner ate 25 5% of meal and drank 120 ml fluids ,Patient son at bedside and 1 :1 sitter at bedside .
[2023-11-06 21:21] VITALS: BP 151/69; PULSE 51; RESP 16; TEMP 36.1; O2SAT 97
[2023-11-06] MEDS: QUEtiapine Fumarate 25 MG TABLET PO (21:45)
--- NOTE | 2023-11-06 21:49 | PC.NURSE ---
This ad writer assumed care of this Pt at 1900. Pt A&O to self, unable to verbalize , Pt soft spoken, mumbling random words. Pt medicated per MAR, needed much redirection/encouragement. Med given with pudding. Sitter remains at bedside.
[2023-11-07 05:07] VITALS: BP 164/70; PULSE 72; RESP 16; TEMP 36.8; O2SAT 95
--- NOTE | 2023-11-07 05:13 | PC.NURSE ---
Pt awake, continues to attempt to get OOB, redirectable. Sitter remains in place.
--- NOTE | 2023-11-07 06:09 | MHC.EDTECH ---
0600 rounding done ,pt clean and dry ,patient sleeping ,all safety measure in place .
--- NOTE | 2023-11-07 08:00 | PC.NURSE ---
assumed care of patient, Pt laying on stretcher calm cooperative and quiet. intermittently sleeping. Pt compliant with taking medications this morning. but minimally responsive to questions of how she is feeling, just staring into space and occasionally nodding head yes or no. 1:1 sitter at bedside for safety and flight risk. Pending care team consult.
[2023-11-07 08:37] VITALS: BP 164/70
[2023-11-07] MEDS: lisinopriL 10 MG TABLET PO (08:37)
[2023-11-07] MEDS: Atorvastatin Calcium 40 MG TABLET PO (08:37)
[2023-11-07] MEDS: Donepezil HCl 10 MG TABLET PO (08:37)
[2023-11-07] MEDS: Ferrous Sulfate 324 MG TABLET.DR PO (08:37)
[2023-11-07] MEDS: QUEtiapine Fumarate 25 MG TABLET PO ×2 (08:37→22:00)
[2023-11-07] MEDS: Folic Acid 1 MG TABLET PO (08:38)
[2023-11-07 08:45] VITALS: BP 162/74; PULSE 64; RESP 16; TEMP 36.6; O2SAT 97
--- NOTE | 2023-11-07 10:26 | PC.NURSE ---
patient ambulated to the bathroom with 1Assist moderate and needing alot of redirection and instructions. Pt quiet but cooperative this morning and alert to verbal stimuli and coming in and out of sleeping. Not talking much today. limited speech of 1-2 words for anwsers. Pt refuses any food or jucie, only would take small sips of water with medications this morning.
--- NOTE | 2023-11-07 12:30 | PC.NURSE ---
Pt was sat upright for lunch today and pt was unable to use utensils herself was having difficulty with grasp and feeding self. Tech helped pt 1:1 with feeding, pt tolerated eating well without complications but was unable to feed self. MD aware. Pt diet changed to mechanical soft and staff notified of need for aspiration precautions for feedings.
[2023-11-07 12:51] VITALS: BP 103/50; PULSE 50; RESP 16; TEMP 36.2; O2SAT 99
--- NOTE | 2023-11-07 14:42 | MHC.CM.ED ---
Patient remains in ER overflow. Last received IM meds on 11/05. Psych consult pending for medication recommendations. Continue to monitor for d/c needs.
--- NOTE | 2023-11-07 15:18 | MHC.EDTECH ---
this tech took over care 2 1500, at this time this tech assisted RN to change pt over into hospital bed. [place]sey and call light given for safety, sitter at bedside
[2023-11-07 16:25] VITALS: RESP 18
[2023-11-07 20:53] VITALS: RESP 17
--- NOTE | 2023-11-07 21:00 | PC.NURSE ---
This telegraphic typewriter repairer assumed care of this Pt at 1900. Pt ambulated with 1:1 sitter to BR, medium green loose color stool.
--- NOTE | 2023-11-07 22:55 | MHC.EDTECH ---
at this time this tech attempted to take the pt vital signs and she refused due to agitation
--- NOTE | 2023-11-07 23:33 | PC.NURSE ---
report given to Riana MUÑOZ, in overflow
--- NOTE | 2023-11-08 | ECG_ITS ---
Test Reason : QTC Blood Pressure : / mmHG Vent. Rate : 080 BPM Atrial Rate : 080 BPM P-R Int : 138 ms QRS Dur : 086 ms QT Int : 420 ms P-R-T Axes : 089 072 064 degrees QTc Int : 484 ms Normal sinus rhythm with sinus arrhythmia Nonspecific T wave abnormality Abnormal ECG When compared with ECG of 26-JAN-2018 11:53, Sinus rhythm has replaced Ectopic atrial rhythm Nonspecific T wave abnormality no longer evident in Inferior leads Nonspecific T wave abnormality now evident in Anterior leads QT has lengthened Referred By: Poornima Xiong Electronically Signed By:SHARMIN JEFFERSON
[2023-11-08 00:22] VITALS: BP 127/70; PULSE 95; RESP 18; TEMP 36.3; O2SAT 98
[2023-11-08] MEDS: QUEtiapine Fumarate 25 MG TABLET PO ×2 (01:37→09:40)
[2023-11-08 01:54] LABS: Lyme Abs Screen <0.90 index
--- NOTE | 2023-11-08 03:15 | PC.NURSE ---
Patient transferred to overflow unit. Initially restless, not redirectable. Attempting to get OOB . Provider notified and an additional dose of Seroquel ordered. Patient sleeping at present time. 1:1 sitter at bedside.
--- NOTE | 2023-11-08 10:01 | PC.NURSE ---
Pt severe confusion and overwhelmed and mild agitation this morning with any questions or requests. Pt therapeutic ambulation with 1:1 and was able to convince pt to take AM seroquel dose with one bite of jello. Pt difficult to redirect at times. states No its not suppose to be like this this is old no I can't Pt alert but disoriented to self, place, situation. MD aware
--- NOTE | 2023-11-08 10:25 | P.CNPS_ITS ---
History of Present Illness Date of Service: 11/08/23 Chief Complaint: Angry w/Family Alzheimers Fam Wants Higher Care Discussed with referring provider: Yes Sources of Information: patient interviewed, chart reviewed and crisis/core team assessment reviewed HPI Narrative: Mrs. Rubio is a 78 year-old woman with hx of dementia who was brought in by family reporting they no longer are able to care for her and request LTP. Pt has been wondering on the unit, trying to leave, not oriented requiring IM medications. Pt seen today and she appears with very poor attention. She briefly looked at this program writer's face when called her name but after that she was not able to answer any questions including... do you have any pain? or do you know where we are? She seemed figetty. Per RN, pt presents more confused today, refusing medications, trying to get out of bed, non sensical speech. Diagnostics Vital Signs (24Hr): Vital Signs - 24 hr 11/07/23 12:51 11/07/23 16:25 11/07/23 20:53 Temperature 97.2 F Pulse Rate 50 Respiratory Rate 16 18 17 Blood Pressure 103/50 L Pulse Oximetry 99 Oxygen Delivery Method Room Air 11/08/23 00:22 Temperature 97.4 F Pulse Rate 95 Respiratory Rate 18 Blood Pressure 127/70 Pulse Oximetry 98 Oxygen Delivery Method Room Air BMI result Body Mass Index 21.0 Labs 11/06/23 16:45 11/05/23 06:35 Labs: Laboratory Results - last 48 hr 11/06/23 16:45 WBC 3.8 L RBC 3.84 L Hgb 12.1 Hct 35.9 L MCV 93.5 MCH 31.5 MCHC 33.7 RDW 12.7 Plt Count 153 L MPV 8.9 L Absolute Nucleated RBC 0.000 Nucleated RBC % (auto) 0.0 Lyme Screen IgG & IgM <0.90 Imaging Radiology Impressions: ITS Impressions Abdomen Ultrasound 11/05/23 21:15 IMPRESSION: Normal ultrasound of the spleen and left kidney. Electronically signed by: Aman Hill MD 11/05/2023 09:46 PM EDT Medications Medications Current Medications Atorvastatin Calcium (Atorvastatin Calcium 40 Mg Tablet) 40 mg PO DAILY [facility] Last Admin: 11/08/23 09:59 Dose: Not Given Donepezil HCl (Donepezil Hcl 10 Mg Tablet) 10 mg PO DAILY [facility] Last Admin: 11/08/23 09:59 Dose: Not Given Ferrous Sulfate (Ferrous Sulfate 324 Mg Tablet.) 324 mg PO DAILY [facility] Last Admin: 11/08/23 10:00 Dose: Not Given Folic Acid (Folic Acid 1 Mg Tablet) 1 mg PO DAILY [facility] Last Admin: 11/08/23 10:00 Dose: Not Given Lisinopril (Lisinopril 10 Mg Tablet) 10 mg PO DAILY [facility]; Protocol Last Admin: 11/08/23 09:59 Dose: Not Given Patient Own Medication ( Memantine 14 Mg Capsule,Sprinkle,Er 24hr) 14 mg PO DAILY [facility] Last Admin: 11/08/23 10:00 Dose: Not Given Quetiapine Fumarate (Quetiapine Fumarate 25 Mg Tablet) 25 mg PO BID [facility] Last Admin: 11/08/23 09:40 Dose: 25 mg Allergies Allergies Allergy/AdvReac Type Severity Reaction Status Date / Time No Known Allergies Allergy Unverified 11/04/23 12:48 [No Known Allergies*] Assessment & Plan Assessment & Plan (1) Major neurocognitive disorder: Status: Acute Code(s): F03.90 - Unspecified dementia, unspecified severity, without behavioral disturbance, psychotic disturbance, mood disturbance, and anxiety (2) Delirium: Status: Acute Code(s): R41.0 - Disorientation, unspecified Plan Mrs. Ruibo is a 78 year-old woman with hx of dementia, presenting as more combativ. Seen today and pt appears delirious superimposed on dementia. I would recommend to reorder UA, or repeat labs, see what may have caused increased confusion. In the meanwhile may increase seroquel to 50mg po TID. monitor EKG, maintain K>4, Mg>2, Qtc<500ms, otherwise stop antipsychotic. In event of acute agitation can use olanzapine 5-10mg IM, AVOID OVERSEDATION as i will prolonged delirium even after treating underlying medical cause. Provide walking during the day and maintain hydration and proper nutrition as pt may not be able to tell when she is thirsty or hungry. Total time managing care of this patient today ____ minutes.
--- NOTE | 2023-11-08 12:12 | MHC.SLORD ---
Speech Language Pathology Order Status: BUSINESS SERVICES DIRECTOR attempted to see pt this morning for PO trials. BUSINESS SERVICES DIRECTOR present for RN administration of medication w/ limited bite of jello. Pt refusing further PO. BUSINESS SERVICES DIRECTOR to continue to follow.
--- NOTE | 2023-11-08 13:13 | MHC.EDTECH ---
This tech attemptd EKG with assistance from [facility], patient visibly upset, pulling hair and stating no, no, no, no. RN Clarence aware.
[2023-11-08 13:39] LABS: A. Phagocytphilium DNA,RT-PCR NOT DETECTED (NOT DETECTED); Babesia Microti DNA, RT-PCR NOT DETECTED (NOT DETECTED); Borrelia Miyamotoi,DNA RT-PCR NOT DETECTED (NOT DETECTED); E.Chaffeensis DNA RT-PCR NOT DETECTED (NOT DETECTED); Lyme(Borrelia ssp)DNA RT-PCR NOT DETECTED (NOT DETECTED)
--- NOTE | 2023-11-08 13:57 | MHC.SL.SWA ---
Speech Pathologist Impression: Risk of Aspiration Dysphagia Nonspecific Risk of Aspiration Due to: Neurological Condition Reduced Cognition Dysphasia Diet Status: NO CHANGE Liquid Consistency and Strategies for Safe Swallow: Liquid Intake Recommendation: Thin Liquid Intake Strategies: Small Sips Solid Food Consistency: Dietary Recommendations: Grnd/Mech Altered (NDD2) Oral Medication Intake: Crushed with Puree Please contact the pharmacy regarding appropriate crushable or liquid drug formulations that are available whenever modified delivery is recommended. Compensatory Strategies and Precautions to be Taken for Safe Swallow: Sitting Upright (90 deg) Small Bites and Sips Alternate Liquids/Solids Supervision While Eating and Drinking for Safe Swallow: Total Assistance (1:1) Recommendation for Speech: Inpatient Speech Therapy Comment: Recommend patient continue with GROUND/MECH ALTERED solids (NDD2) with THIN liquids. Recommend pills CRUSHED in PUREE when possible. Otherwise, WHOLE in PUREE. 1-1 FEED. [employer]ite Heater Clinican/Clinical Fellow: No Supervisory Statement: I have reviewed and agree with the student/clinical fellow's documentation: N/A Speech Language Pathologist: Celine Herrera M.A., CCC-SENIOR RESEARCH ANALYST
[2023-11-08] MEDS: QUEtiapine Fumarate 50 MG TABLET PO ×2 (15:02→20:26)
[2023-11-08 15:58] VITALS: PULSE 96; RESP 16; O2SAT 97
--- NOTE | 2023-11-08 18:36 | PC.NURSE ---
Tinsmith Helper received a call at 1830 from Xochitl Velasco, director of facility called [facility] inquiring about pt. discharge. Family is waiting to package pick up patient and transport her to facility. No information relating to that was found in notes or reports. Tinsmith Helper told Xochitl that the information would be passed along. Xochitl can be reached at [phone].
[2023-11-08 20:00] VITALS: BP 167/99; PULSE 89; RESP 18; TEMP 36.6; O2SAT 99
--- NOTE | 2023-11-08 20:24 | MHC.EDTECH ---
This tech took over care of patient at 1900,hourly rounds and vitals completed,patient is very restless sitter at bedside for safety,
[2023-11-09 06:29] VITALS: BP 145/87; PULSE 102; RESP 17; O2SAT 97
[2023-11-09] MEDS: QUEtiapine Fumarate 50 MG TABLET PO (09:13)
[2023-11-09] MEDS: Ferrous Sulfate 324 MG TABLET.DR PO (09:13)
[2023-11-09] MEDS: lisinopriL 10 MG TABLET PO (09:13)
[2023-11-09] MEDS: Donepezil HCl 10 MG TABLET PO (09:13)
[2023-11-09] MEDS: Folic Acid 1 MG TABLET PO (09:13)
[2023-11-09] MEDS: Atorvastatin Calcium 40 MG TABLET PO (09:13)
--- NOTE | 2023-11-09 09:19 | MHC.CM.ED ---
Addendum entered by Odalis Tavera 11/09/23 09:20: Per Lesley from [facility] financial counseling, Lesley reached out to sister about completing [facility] application. Kylah refused to provide banking statements. Original Note: Patient remains in ER overflow. Received notification from patient's brother, Adiel, that a dementia bed has been secured for patient at [facility] in [place]. It is a memory care assisted living facility. Adiel will be on-site at 11am to transport patient. Patient, Lizzie MUÑOZ and Luciana HERNANDEZ aware. Continue to monitor for d/c needs.
[2023-11-09 11:19] VITALS: BP 144/78; PULSE 80; RESP 14; TEMP 36.8
== END 2023-11-09 11:21 | disposition home or self-care (01) ==
PROVIDERS: Emergency Medicine; Emergency Provider Emergency Medicine Emergency Medical Services; PCP Internal Medicine
DX: F03.90 Unspecified dementia, unspecified severity, without behavioral disturbance, psychotic disturbance, mood disturbance, and anxiety (principal); R41.0 Disorientation, unspecified; R45.1 Restlessness and agitation; Z03.818 Encounter for observation for suspected exposure to other biological agents ruled out; D61.818 Other pancytopenia; D64.9 Anemia, unspecified
CPT/HCPCS: 0241U; 36415; 51701; 76705; 80048; 80076; 81001; 82272; 82607; 82746; 83540; 83735; 84439; 84443; 85025; 85027; 86617; 86618; 87468; 87469; 87478; 87484; 87798; 93005; 96372; 97162; 99285; J2359; S9485

== ENCOUNTER → 2023-11-04 13:32 | Outpatient (BNV) | payer MEDICARE, OTHER, SELFPAY | PROVIDERS: Emergency Provider Emergency Medicine Emergency Medical Services; PCP Internal Medicine; Visit Provider Psychiatry & Neurology Psychiatry | DX: F03.90 Unspecified dementia, unspecified severity, without behavioral disturbance, psychotic disturbance, mood disturbance, and anxiety (principal); R41.0 Disorientation, unspecified | CPT/HCPCS: 99283 ==

== ENCOUNTER 2024-09-09 15:20 | Outpatient (REF) | payer MEDICARE, OTHER, SELFPAY ==
[2024-09-09 15:36] LABS: MANUAL DIFF FLAG NO
--- OUTSIDE RECORDS SUMMARY | 2024-09-09 15:38 | XMS_ITS | Continuity of Care Document ---
Author Organization [facility] Address [address] [place] [address] Assessment No assessment recorded. Plan of Treatment Reminders Order Date Submit Date Provider Last Modified By Organization Details Last Modified Time Details Appointments FOLLOW UP 15 2024 02:15P DAVID WALKER Not available Not available Not available Lab TSH + free T4, serum 2024 025 [facility], [address] [place] [address], [id number], 09/09/2024 14:34:49 hemoglobi n A1c, QN, blood 2024 025 [facility], [address] [place] [address], [id number], 09/09/2024 14:34:49 CMP, serum or plasma 2024 025 [facility], [address] [place] [address], [id number], 09/09/2024 14:34:49 CBC w/ auto diff 2024 025 [facility], [address] [place] [address], [id number], 09/09/2024 14:34:49 CK (creatine kinase), total, serum 2024 025 [facility], [address] [place] [address], [id number], 09/09/2024 14:34:49 gamma-glu tamyl transfera se (ggt), serum 2024 025 [facility], [address] [place] [address], [place], [id number], 09/09/2024 14:34:49 amylase + lipase, serum 2024 025 [facility], [address] [place] [address], [place], [id number], 09/09/2024 14:34:49 Referral None recorded. Procedures None recorded. Surgeries None recorded. Imaging None recorded. Medication Orders atorvasta tin 40 mg tablet 2024 025 [id number], [address], [place], [id number], 09/09/2024 14:30:39 levothyro xine 200 mcg tablet 2024 025 [id number], [address], [place], [id number], 09/09/2024 14:30:47 Patient TargetsNo targets recorded. Patient InstructionsNo instructions recorded. Reason for Referral None Reported. 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 Active 2022 Not Available [facility] 3 13:26:53 Abnormal weight loss 392745896 Active 2022 Not Available [facility] 3 13:26:53 Dementia 01791640 Active 2023 DAVID TOM [address] [place], [address], [facility] 4 08:52:24 Dementia with behavior al disturba nve 6750090685 103 Active 2023 DAVID TOM [address] [place], [address], [facility] 4 14:46:24 Altered mental status 897146780 Active 2023 DAVID TOM [address] [place], [address], [facility] 4 14:49:11 Acute urinary tract infectio n 241310481 Active 2023 DAVID TOM [address] [place], [address], [facility] 4 15:25:22 Weight increase d 715663489 Active 2024 DAVID TOM [address] [place], [address], [facility] 5 14:31:10 Weight decrease d 787874225 Active 2024 DAVID TOM [address] [place], [address], [facility] 5 14:31:45 [facility] hyperten berna 22666267 Active 2017 Not Available [facility] 3 13:26:53 Hypothyr oidism 21777859 Active 2017 Not Available [facility] 3 13:26:53 Hypercho lesterol emia 60736907 Active 2017 Not Available [facility] 3 13:26:53 Environm ental allergy 852852793 Active 2017 Not Available [facility] 3 13:26:53 Impaired fasting glycemia 051276765 Active 2017 Not Available [facility] 3 13:26:53 Type 2 diabetes mellitus 55674931 Completed 201712/05/2017 diet controll ed with weight loss Pili Eubanks NP, [address] [place], [address], [facility] 8 14:50:58 Problem Notes None recorded. Procedures Surgical History Date Name Laterality Status Provider Name and Address Organization Details Recorded Time 01/29/20 18 repair of left inguinal hernia completed Pili Eubanks NP, [address] [place], [address], [facility] 01/31/2018 10:24:16 Appendectomy completed Pili santana NP, [address] [place], [address], [facility] 12/05/2017 14:33:33 Unlisted px dentalvlr strux completed Pili Eubanks NP, [address] [place], [address], [facility] 12/05/2017 14:33:39 Imaging Results None recorded. Procedure Notes None recorded. Medical Equipment None Reported. Allergies No known drug allergies Medications Name Sig Start Date Stop Date Status Note LastModified by Organization Details LastModified Time quetiapine 25 mg tablet TAKE 1 TABLET BY MOUTH TWICE DAILY active Not Available Not Available No t Available atorvastati n 40 mg tablet TAKE 1 TABLET BY MOUTH EVERY DAY 2024 active Not Available Not Available Not Avai lable levothyroxi ne 175 mcg tablet TAKE 1 TABLET BY MOUTH EVERY DAY 11/22 completed Not Available Not Available Not Available doxycycline hyclate 100 mg capsule Take 1 capsule twice a day by oral route for 10 days. 08/28 completed Not Available Not Available Not Available donepezil 5 mg tablet 07/19 completed Not Available Not Available Not Available donepezil 10 mg tablet TAKE ONE TABLET QD PO active Not Available Not Available No t Available prednisone 20 mg tablet 4 tabs X 2 days, 3 tabs X 3 days, 2 tabs X 3 days , 1 tab X 3 days 06/18 completed Not Available Not Available Not Available simvastatin 80 mg tablet Take 1 tablet every day by oral route. 05/12 completed Not Available Not Available Not Available sulfamethox azole 800 mg-trimetho prim 160 mg tablet TAKE 1 TABLET BY MOUTH EVERY 12 HOURS FOR 10 DAYS 09/09 completed Not Available Not Available Not Available levothyroxi ne 100 mcg tablet TAKE 1 TABLET BY MOUTH DAILY 6 DAYS A WEEK AND 2 TABLETS ON DAY 7 07/19 completed Not Available Not Available Not Available levothyroxi ne 125 mcg tablet Take 1 tablet every day by oral route. 06/06 completed Not Available Not Available Not Available lisinopril 10 mg tablet TAKE 1 TABLET BY MOUTH EVERY DAY needs appt for further refills. call office active Not Available Not Available No t Available levothyroxi ne 150 mcg tablet TAKE 1 TABLET BY MOUTH EVERY DAY active Not Available Not Available No t Available levothyroxi ne 200 mcg tablet Take 1 tablet every day by oral route as directed for 90 days. 2024 active Not Available Not Available Not Avai lable fluticasone propionate 50 mcg/actuati on nasal spray,suspe nsion SHAKE LIQUID AND USE 1 SPRAY IN EACH NOSTRIL EVERY DAY 09/09 completed Not Available Not Available Not Available doxycycline hyclate 100 mg tablet Take 1 tablet twice a day by oral route for 7 days. 09/04 completed Not Available Not Available Not Available levothyroxi ne 1mcg take one tablet and 2 tablets on 05/15 completed Not Available Not Available Not Available memantine 14 mg capsule sprinkle,ex tended release 24hr 09/09 completed Not Available Not Available Not Available memantine 7 mg capsule sprinkle,ex tended release 24hr Take 1 capsule every day by oral route for 7 days. 09/24 completed Not Available Not Available Not Available Fluad Quad 3402-9903(6 5yr up)(PF) 60 mcg (15 mcg x 4)/0.5mL IM syringe ADM 0.5ML IM UTD 10/16 completed Not Available Not Available Not Available Vitals Date Recorded Body height Oxygen saturation Oxygen saturation in Arterial blood by Pulse oximetry Heart rate Body mass index (BMI) Body weight Systolic blood pressure Diastolic blood pressure Provider Name and Address Organization Details Last Updated DateTime 5 163.83 cm 98 % 98 % 82 /min 18.3 kg/m2 50248.9 8 g 99 mm[Hg] 74 mm[Hg] [facility] 5 14:17:55 Social History Question Answer Notes LastModified by Organizat ion Details LastModified Time Tobacco Smoking Status Former Smoker Not Available [facility] 01/14/2020 03:36:24 What Was The Date Of Your Most Recent Tobacco Screening? 09/09/2024 [email or web address] Information not available 09/09/2024 How Many Years Have You Smoked Tobacco? 13 [id number] Information not available 01/14/2020 Sex: Unknown Functional Status None recorded. Mental Status None recorded. Family History Relationship Description Onset Age of this Age Resolved Age Notes LastModified by Organization Details LastModified Time Sister Subclavian steal syndrome delvin Not available 2017 14:32:33 Father Suicide 42 [email or web address] Not available 12/05/2017 14:32:50 Mother Coronary arterioscler osis 82 esws Not available 2017 14:33:14 Medical History Condition Response Coronary Artery Disease N Gout N Blood Diseases N Kidney Stones N Hyperthyroidism N Breast Cancer N Blood Transfusion N Hypothyroidism Y Lung Disease N Depression N COPD N Defects or Inherited Disease N Difficulty Swallowing N Anesthesia Complications N Anxiety Disorder N Meniere's disease N Muscle, Joint, or Bone Problems N Obesity Y Vision or Eye Problems Y Arthritis N Polyps Mental Disorder N Cancer N Stroke N Varicosities N Bladder or Kidney Problems N High Cholesterol Y Liver Disease N Fibromyalgia N Headaches Y Kidney Disease N Allergies/Hayfever Y Heart Problems N Hospitalizations Y Thyroid Problems Y GI Problems N Skin Problems N Anemia N Constipation Y Mental Illness N Diabetes N Seizures/Epilepsy N Tuberculosis N Congestive Heart Failure (CHF) N Eczema N Abuse/Domestic Violence N Asthma N Reflux/GERD N Hepatitis N Chronic Ear Infections N Chicken Pox Y Autism Spectrum Disorder (ASD) N Gynecological History Statement/Question Response If Post Menopausal, Age at Menopause 53 HPV Vaccine N Age at Menarche 15 Age at First Child 32 Obstetrics History GPAL:G 2 P 2 0 0 2 Type Value Full Term 2 Living 2 Total 2 Immunizations Vaccine Type Date Status Note Provider Nam e and Address Organization Details Recorded Time COVID-19, mRNA, LNP-S, PF, 100 mcg/0.5mL dose or 50 mcg/0.25mL dose 1 completed Not Available [facility] 12/15/2022 13:26:53 COVID-19, mRNA, LNP-S, PF, 100 mcg/0.5mL dose or 50 mcg/0.25mL dose 1 completed Not Available [facility] 12/15/2022 13:26:53 Influenza, split virus, quadrivalent, preservative 8 completed Not Available [facility] 12/15/2022 13:26:53 Influenza, split virus, quadrivalent, preservative 9 completed Not Available [facility] 12/15/2022 13:26:53 Past Encounters Encounter ID Performer Location Encounter Start Date Encounter Closed Date Diagnosis/Indication Diagnosis SNOMED-CT Code Diagnosis ICD10 Code Diagnosis Note [id number] Roderick Villanueva DO [facility] [address],[place] [address] 09/09/2024 13:55:53 09/09/2024 14:55:28 Depression screening 136690973 Z13.31 mild, due to memory changes Essential hypertension 65741895 I10 will dc Hypercholesterolemia 136 46578 E78.2 stable Hypothyroidism 28579536 E03.8 stablegood on the current medication s Weight decreased 5177156 01 R63.4 Health Concerns Section Related Observation LastModified by Organization Detai ls LastModified Time None Recorded Concern Status LastModified by Organization Details LastModified Time None Recorded Payers Encounter Date Sequence Insurance Name Policy Number Policy Sauceda Covered Member ID Sauceda Member ID Guarantor Name 09/09/2024 1 MEDICARE B-AZ: [employer] Ankita Rubio [id number] Ankita Rubio 09/09/2024 2 () Ankita Rubio [id number] Ankita Rubio Notes Date Note Type Note Provider Name a nd Address Organization Details Recorded Time 09/09/2024 text/html medication f/u the patient is here with her sisterpatient has sig dementia the patient is taking her medication as prescribedthe patient is down is significantly reducedher sisters states she [facility] [place] [facility], but can't be surethe patient is sleeping well per patient the patient is here to make sure her medication are working correctly need labs work rechecked is down almost 100 pounds from usual weight DAVID TOM [address], [place], [address], [facility] 09/09/2024 14:42:38 OBGyn Episode No OBEpisode recorded.
[2024-09-09 16:19] LABS: Basophils Percent Auto 0.9 % (0-2); Eosinophils Percent Auto 0.9 % (0-4); Hematocrit 33.5 % (37.0-47.0); Hemoglobin 10.8 g/dl (12.0-16.0); Imm Gran Abs Auto 0.01 X10*3/uL (0.00-0.03); Imm Gran Pct Auto 0.2 % (0.0-0.4); Lymphocytes Absolute Auto 1.3 X10*3/uL (1.2-4.9); Lymphocytes Percent Auto 28.9 % (20-40); Mean Corpuscular HGB Conc 32.2 g/dl (31.0-35.0); Mean Corpuscular Hemoglobin 32.1 pg (27.0-33.0); Mean Corpuscular Volume 99.7 fL (80.0-98.0); Monocytes Absolute Auto 0.4 X10*3/uL (0.1-1.2); Monocytes Percent Auto 9.1 % (2-11); Neutrophils Absolute Auto 2.8 x10*3/uL (2.0-8.3); Platelet Count 216 X10*3/uL (160-400); Red Blood Count 3.36 X10*6/uL (4.20-5.50); Red Cell Distribution Width 12.9 % (11.0-16.0); White Blood Count 4.6 X10*3/uL (4.8-10.8)
[2024-09-09 16:33] LABS: Estimated Average Glucose 114 mg/dL; Hemoglobin A1c % 5.6 % (<6.0)
[2024-09-09 16:56] LABS: Alanine Aminotransferase 13 U/L (0-31); Albumin Level 3.8 g/dL (3.5-5.0); Alkaline Phosphatase 81 U/L (39-117); Anion Gap 11 (12-20); Aspartate Amino Transferase 18 U/L (5-31); Bilirubin Total 0.5 mg/dL (0.0-1.0); Blood Urea Nitrogen 28 mg/dL (9-16); Calcium 8.8 mg/dL (8.4-10.2); Carbon Dioxide 29 mmol/L (22-29); Chloride 106 mmol/L (96-108); Estimated Glomerular Filt Rate > 60; Gamma Glutamyl Transpeptidase 9 U/L (7-33); Glucose Random 98 mg/dL (60-115); Lipase 20 U/L (8-78); Potassium 3.5 mmol/L (3.3-5.1); Sodium 142 mmol/L (135-145); Total Protein 6.1 g/dL (6.5-8.0)
[2024-09-09 17:14] LABS: Amylase 37 U/L (28-100)
[2024-09-09 17:21] LABS: TSH reflex Free T4 < 0.01 uIU/mL (0.32-4.0)
[2024-09-09 19:29] LABS: Free T4 (Free Thyroxine) 1.97 ng/dL (0.71-1.85)
== END 2024-09-09 15:21 | disposition home or self-care (01) ==
LOC: HO.LAB 15:20
PROVIDERS: PCP Internal Medicine; Visit Provider Physician Assistant
DX: E03.8 Other specified hypothyroidism (principal); R63.4 Abnormal weight loss
CPT/HCPCS: 36415; 80053; 82150; 82550; 82977; 83036; 83690; 84439; 84443; 85025